=== PATIENT | female | born 1995 | race Caucasian/White ===

== ENCOUNTER 2022-12-30 13:17 | Outpatient (AMB) | payer BC, SELFPAY ==
[2022-12-30 13:23] VITALS: BP 104/64; PULSE 82; O2SAT 98; BMI 32.7
--- NOTE | 2022-12-30 13:23 | MHC.PC.OV ---
Vital Signs 12/30/22 13:23 Height 5 ft 4 in Weight 190 lb 8 oz BMI 32.7 BP 104/64 Blood Pressure Location Rt brachial Position Sitting Pulse 82 Pulse Source Pulse Oximeter Pulse Oximetry (%) 98 Oxygen Delivery Method Room Air Intake Visit Reasons: abd pain Intake Note: pt is here for c/o abd pain for a few months, 2 months , denies constipation, denies frequency with urine or pain Color Checker Required: No Accompanied by: Self / Same As Patient Allergies No Known Allergies Allergy (Verified 12/30/22 13:23) Medication List - Last Reconciled 12/30/22 by Vesta Dacosta MD vit [id number] 27 mg iron- 800 mcg ( Vitamin) 1 tab PO DAILY Tobacco use date assessed: 12/30/22 Dental Screening Dental Screen Date: 12/30/22 Did you have a dental visit in the last 12 months?: Yes Did you have a dental problem in the last 6 months where you did not have access to dental care?: No Was dental information given to patient?: Patient has dentist HPI abd pain HPI Details Pt presents c/o burning epigastric pain, nausea, worse after eating, for a few weeks. Pt had a baby girl on October 11. Patient denies fever chills change in bowel habits hematochezia melena change in urination. Patient has been eating a lot of junk food and drinking a lot of coffee. [facility] Family History Father No problems noted. Mother No problems noted. Social History Housing: House Patient Tobacco Use Status: Never used Tobacco e-Cigarette/Vaping Use: Never Used Current occupational status: employed Cognitive needs: No Hearing needs: No Vision needs: Yes Questionnaire Thrive Questionnaire Date Thrive assessed: 12/30/22 I am a: Patient What is your living situation today?: I have a steady place to live Within the past 12 months, did the food you bought not last and you didn't have the money to get more?: Never true Within the past 12 months, did you worry whether your food would run out before you got money to buy more?: Never true Do you have trouble paying for medicines?: No Do you have trouble getting transportation to medical appointments?: No Do you have trouble paying your heating and electricity bill?: No Do you have trouble taking care of your child, family member or friend?: No Do you have trouble with day-to-day activities such as bathing, preparing meals, shopping, managing finances, etc.?: No Are you currently unemployed and looking for a job?: No Are you interested in more education?: No Please select the resources that you would like help with: None Currently or been in a relationship where the following occur: no concerns reported ROBERT-7 AMB Questionnaire ROBERT-7 Date ROBERT - 7 assessed: 07/09/22 Source: Developed by Drs. Tulio Perez, Ling Adkins, Rosales Cesar and colleagues, with an educational george from [employer]. Review of Systems Const All systems reviewed & are unremarkable except as noted in HPI and below Reports no additional complaints Eyes Reports no additional complaints Physical exam (Primary Care) Vital Signs: Last Vital Signs Pulse 82 12/30/22 13:23 BP 104/64 12/30/22 13:23 Pulse Ox 98 12/30/22 13:23 Oxygen Delivery Method Room Air 12/30/22 13:23 BMI result Body Mass Index 32.7 Tobacco/Smoking Status: Tobacco use Status Tobacco use date assessed 12/30/22 12/30/22 13:24 Patient Tobacco Use Status Never used Tobacco 12/30/22 13:24 e-Cigarette/Vaping Use Never Used 12/30/22 13:24 Thrive Assessment: Date of Thrive Assessment Date Thrive assessed 12/30/22 12/30/22 13:24 Currently or been in a relationship where the following occur: no concerns reported Const General: no acute distress [facility] Mouth: Normal oral and palatal mucosa present Eyes General: appearance normal, both eyes and all related structures Cardio Rhythm: regular rhythm Heart sounds: S1 normal heart sound present and S2 normal heart sound present GI Inspection: Yes normal to inspection Palpation (GI): Soft to palpation and Tenderness to palpation present (GI) in the epigastrum and in the RUQ; Laws's sign negative and with no rebound tenderness Percussion: Yes normal to percussion Auscultation: normal bowel sounds Assessment and Plan Assessment & Plan (1) Abdominal pain: Comment: RUQ pain ,epigastic pain r/o gallstones Code(s): R10.9 - Unspecified abdominal pain Plan: Obtain abdominal ultrasound to rule out gallstones, anti GERD diet discussed with the patient Tagamet 200 mg twice a day will be tried for 1 month Orders: Orders Hemoglobin A1c Today R10.9 - Unspecified abdominal pain US abdomen complete Today R10.9 - Unspecified abdominal pain Comprehensive Met. Panel Today R10.9 - Unspecified abdominal pain Complete Blood Count Auto Diff Today R10.9 - Unspecified abdominal pain TSH reflex Free T4 Today R10.9 - Unspecified abdominal pain Medications: New cimetidine (Tagamet HB) 200 mg PO BID 60 tabs 0RF Coding Level of Care Code Est Pt Level 3 (57970) Diagnoses Abdominal pain R10.9
== END 2022-12-30 14:59 | disposition home or self-care (01) ==
PROVIDERS: PCP Internal Medicine; Visit Provider Internal Medicine
DX: R10.9 Unspecified abdominal pain (principal)
CPT/HCPCS: 99213

== ENCOUNTER 2022-12-30 14:16 | Outpatient (REF) | payer BC, SELFPAY ==
[2022-12-30 16:18] LABS: MANUAL DIFF FLAG NO
[2022-12-30 16:31] LABS: Basophils Absolute Auto 0.1 X10*3/uL (0.0-0.2); Basophils Percent Auto 0.6 % (0-2); Eosinophils Absolute Auto 0.9 X10*3/uL (0.0-0.4); Eosinophils Percent Auto 10.7 % (0-4); Hematocrit 40.4 % (37.0-47.0); Imm Gran Abs Auto 0.02 X10*3/uL (0.00-0.03); Imm Gran Pct Auto 0.2 % (0.0-0.4); Lymphocytes Absolute Auto 1.7 X10*3/uL (1.2-4.9); Lymphocytes Percent Auto 21.7 % (20-40); Mean Corpuscular HGB Conc 34.7 g/dl (31.0-35.0); Mean Corpuscular Hemoglobin 30.4 pg (27.0-33.0); Mean Corpuscular Volume 87.6 fL (80.0-98.0); Mean Platelet Volume 9.4 fL (9.4-12.3); Monocytes Absolute Auto 0.5 X10*3/uL (0.1-1.2); Monocytes Percent Auto 6.5 % (2-11); Neutrophils Absolute Auto 4.8 x10*3/uL (2.0-8.3); Neutrophils Percent Auto 60.3 % (45-73); Platelet Count 279 X10*3/uL (160-400); Red Blood Count 4.61 X10*6/uL (4.20-5.50); Red Cell Distribution Width 12.3 % (11.0-16.0)
[2022-12-30 16:58] LABS: Estimated Average Glucose 100 mg/dL; Hemoglobin A1c % 5.1 % (<6.0)
[2022-12-30 17:00] LABS: Alanine Aminotransferase 19 U/L (0-31); Albumin Level 4.7 g/dL (3.5-5.0); Alkaline Phosphatase 111 U/L (39-117); Anion Gap 12 (12-20); Aspartate Amino Transferase 23 U/L (5-31); Bilirubin Total 0.3 mg/dL (0.0-1.0); Blood Urea Nitrogen 11 mg/dL (9-16); Calcium 9.7 mg/dL (8.4-10.2); Carbon Dioxide 26 mmol/L (22-29); Chloride 106 mmol/L (96-108); Estimated Glomerular Filt Rate > 60; Glucose Random 93 mg/dL (60-115); Potassium 3.8 mmol/L (3.3-5.1); Sodium 140 mmol/L (135-145); Total Protein 7.6 g/dL (6.5-8.0)
[2022-12-30 17:08] LABS: TSH reflex Free T4 0.56 uIU/mL (0.32-4.0)
== END 2022-12-30 14:17 | disposition home or self-care (01) ==
LOC: HO.HMGCLDS 14:16
PROVIDERS: PCP Internal Medicine; Visit Provider Internal Medicine
DX: R10.9 Unspecified abdominal pain (principal)
CPT/HCPCS: 36415; 80053; 83036; 84443; 85025

== ENCOUNTER 2023-01-14 08:56 | Outpatient (REF) | payer BC, SELFPAY ==
--- NOTE | ~2023-01-14 | US_ITS ---
EXAMINATION: US ABDOMEN COMPLETE CLINICAL INFORMATION: Unspecified abdominal pain. COMPARISON: None available. TECHNIQUE: Real-time imaging of the abdominal viscera. FINDINGS: PANCREAS: Normal. ABDOMINAL AORTA: The proximal, mid, and distal segments are normal in caliber. INFERIOR VENA CAVA: Visualized portions are normal. LIVER: The liver is normal in size. The liver contour is normal. There is slightly increased liver parenchymal echogenicity. No focal hepatic lesion. There is no intrahepatic biliary duct dilatation seen. GALLBLADDER: Normal. The gallbladder is physiologically distended without evidence of stones, sludge, polyps, wall thickening or pericholecystic fluid. COMMON BILE DUCT: Normal in caliber measuring 0.3 cm in diameter. RIGHT KIDNEY: Normal. No hydronephrosis. No renal calculi or focal parenchymal lesions. The kidney measures 9.9 cm in maximum dimension. LEFT KIDNEY: Normal. No hydronephrosis. No renal calculi or focal parenchymal lesions. The kidney measures 10.7 cm in maximum dimension. SPLEEN: Normal. The spleen measures 9.9 cm in maximum dimension. FREE FLUID: None. US/US abdomen complete IMPRESSION: 1. There is slight increase in hepatic echotexture, consistent with fatty infiltration or hepatocellular disease. Please correlate clinically. No focal hepatic mass or intrahepatic biliary dilatation is seen. 2. The examination is otherwise unremarkable.
== END 2023-01-14 08:57 | disposition home or self-care (01) ==
LOC: HO.HMGCX 08:56
PROVIDERS: PCP Internal Medicine; Visit Provider Internal Medicine
DX: R10.9 Unspecified abdominal pain (principal)
CPT/HCPCS: 76700

== ENCOUNTER 2023-06-09 14:07 | Outpatient (AMB) | payer OTHER, SELFPAY ==
[2023-06-09 14:11] VITALS: BP 118/74; PULSE 94; O2SAT 98; BMI 33.0
--- NOTE | 2023-06-09 14:11 | A.OFFPC_ITS ---
Vital Signs 06/09/23 14:11 Height 5 ft 4 in Weight 192 lb BMI 33.0 BP 118/74 Blood Pressure Location Lt brachial Position Sitting Pulse 94 Pulse Source Pulse Oximeter Pulse Oximetry (%) 98 Oxygen Delivery Method Room Air Intake Visit Reasons: Abdominal pain nausea Intake Note: Pt is here today for a sick visit. Pt c/o abdominal pain, nausea and night sweats since Tuesday Allergies No Known Allergies Allergy (Verified 06/09/23 14:15) Medication List - Last Reconciled 06/09/23 by Vesta Dacosta MD cimetidine (Tagamet HB) 200 mg PO BID vit [id number] 27 mg iron- 800 mcg ( Vitamin) 1 tab PO DAILY Tobacco use date assessed: 06/09/23 Dental Screening Dental Screen Date: 06/09/23 Did you have a dental visit in the last 12 months?: Yes Did you have a dental problem in the last 6 months where you did not have access to dental care?: No Was dental information given to patient?: Patient has dentist HPI Abdominal pain nausea HPI Details Pt c/o mid abd pain on and off for 4 days, low grade fever, night sweats some nausea, but no vomiting decreased appetite. patient denies dysuria hematuria change in bowel habits back pain. PFSH Family History Father No problems noted. Mother No problems noted. Social History Housing: House Patient Tobacco Use Status: Never used Tobacco e-Cigarette/Vaping Use: Never Used service: No Current occupational status: employed Cognitive needs: No Hearing needs: No Vision needs: Yes Questionnaire Thrive Questionnaire Date Thrive assessed: 12/30/22 AUDIT C Alcohol Use Questionnaire (AUDIT-C) 1. How often do you have a drink containing alcohol?: Never 3. How often do you have six or more drinks on one occasion?: Never Total Score: 0 ROBERT-7 AMB Questionnaire ROBERT-7 Date ROBERT - 7 assessed: 07/09/22 Source: Developed by Drs. Tulio Perez, Ling Adkins, Rosales Cesar and colleagues, with an educational george from [employer]. Review of Systems Const All systems reviewed & are unremarkable except as noted in HPI and below Eyes Reports no additional complaints ENT Reports no additional complaints Card Reports no additional complaints Resp Reports no additional complaints GI Reports no additional complaints Reports no additional complaints Musc Reports no additional complaints Physical exam (Primary Care) Vital Signs: Last Vital Signs Pulse 94 06/09/23 14:11 BP 118/74 06/09/23 14:11 Pulse Ox 98 06/09/23 14:11 Oxygen Delivery Method Room Air 06/09/23 14:11 BMI result Body Mass Index 33.0 Tobacco/Smoking Status: Tobacco use Status Tobacco use date assessed 06/09/23 06/09/23 14:17 Patient Tobacco Use Status Never used Tobacco 06/09/23 14:17 e-Cigarette/Vaping Use Never Used 06/09/23 14:12 Thrive Assessment: Date of Thrive Assessment Date Thrive assessed 12/30/22 06/09/23 14:12 Const General: no acute distress HENMT Head: Yes normal to inspection Eyes General: appearance normal, both eyes and all related structures Neck Neck: Yes supple Resp Effort & Inspection: normal respiratory effort Auscultation: clear to auscultation bilaterally Cardio Rhythm: regular rhythm Heart sounds: S1 normal heart sound present and S2 normal heart sound present GI Inspection: Yes normal to inspection Palpation (GI): Soft to palpation and Rebound tenderness present (LLQ) Auscultation: normal bowel sounds Assessment and Plan Assessment & Plan (1) Appendicitis: Code(s): K37 - Unspecified appendicitis Plan: For acute left lower quadrant abdominal pain basic labs urinalysis will be obtained and CT of the abdomen pelvis to rule out appendicitis or ruptured ovarian cyst Orders: Orders Comprehensive Met. Panel Today K37 - Unspecified appendicitis, R10.9 - Unspecified abdominal pain Ur Preg Test Today K37 - Unspecified appendicitis, R10.9 - Unspecified abdominal pain Complete Blood Count Auto Diff Today K37 - Unspecified appendicitis, R10.9 - Unspecified abdominal pain C Reactive Protein Today K37 - Unspecified appendicitis, R10.9 - Unspecified abdominal pain UA w Microscopic Today K37 - Unspecified appendicitis, R10.9 - Unspecified abdominal pain CT abdomen pelvis wo/w IV con Today K37 - Unspecified appendicitis, R10.9 - Unspecified abdominal pain Coding Level of Care Code Est Pt Level 3 (61937) Diagnoses Appendicitis K37
== END 2023-06-09 14:45 | disposition home or self-care (01) ==
PROVIDERS: PCP Internal Medicine; Visit Provider Internal Medicine
DX: K37 Unspecified appendicitis (principal)
CPT/HCPCS: 99213

== ENCOUNTER 2023-06-09 16:59 | Emergency (ER) | payer OTHER, SELFPAY ==
--- NOTE | ~2023-06-09 | US_ITS ---
STUDY: Abdominal ultrasound, focused. HISTORY: Umbilical/right lower quadrant pain TECHNIQUE: Focused ultrasound of the periumbilical/right lower quadrant was performed to evaluate for appendicitis. US/US appendix FINDINGS/IMPRESSION: The appendix is not visualized. There are a few small lymph nodes identified within the right lower quadrant which appear normal. Peristalsing bowel is identified.
--- NOTE | 2023-06-09 17:27 | ED_ITS ---
HPI - General Adult General Chief complaint: Abdominal Pain Stated complaint: appendicitis per dr Time Seen by Provider: 06/09/23 21:42 History of Present Illness HPI narrative: The patient is a 27-year-old female with no past surgical history and who is an 8-month-old child who has had intermittent episodes of central abdominal pain over the last 5 days. For the most part the symptoms have been worse at night. Last night she had a great deal of pain throughout the night and was apparently almost crying in pain. She went to see her primary care doctor earlier today and was told that there is concern about possible appendicitis. There was discussion about possibly getting a CT scan but ultimately they decided to come to the emergency room for evaluation. After coming to the emergency room the patient had an ultrasound to look for her appendix and she has been waiting to be seen. Her abdominal discomfort has resolved so that by the time I saw her she was having no discomfort whatsoever. The patient has had no vomiting associated with this. No diarrhea. No change in bowel habits. Possibly a mildly decreased appetite but she did eat at 04:30 this afternoon. No fever, sweats, chills. No urinary discomfort. No back pain. She says that when the pain comes she feels it centered around her belly button and it does not lateralize. Eating does not bring on or exacerbate the pain. The patient has had 3 periods since she gave 8 months ago. Her last period was about 2 weeks ago. She does not feel her symptoms feel anything like menstrual symptoms. Related Data Home Medications ?Medication ?Instructions ?Recorded ?Confirmed vits no.[id number] fum 1 tab PO DAILY 07/09/22 06/09/23 27 mg iron-folic acid 800 mcg tablet ( Vitamin) Previous Rx's ?Medication ?Instructions ?Recorded cimetidine 200 mg tablet (Tagamet 200 mg PO BID #180 tabs 02/01/23 HB) sucralfate 1 gram tablet 1 g PO TID PRN abdominal pain #60 06/09/23 tabs Allergies Allergy/AdvReac Type Severity Reaction Status Date / Time No Known Allergies Allergy Verified 06/09/23 17:29 Review of Systems 2 Review of Systems: Yes all other systems are reviewed and are negative [facility] Family History Family History Father No problems noted. Mother No problems noted. Social History Social History Housing: House Patient Tobacco Use Status: Never used Tobacco e-Cigarette/Vaping Use: Never Used Advance Directives: No Advance Directives Information Provided: No Do you have a plan to hurt others: No Plan service: No Current occupational status: employed Cognitive needs: No Hearing needs: No Vision needs: Yes Physical Exam ED Vital Signs: Vital Signs - 24 hr 06/09/23 17:29 06/09/23 21:09 06/09/23 22:29 Temperature 97.3 F 97.2 F 98.4 F Pulse Rate 108 H 91 86 Respiratory Rate 18 18 16 Blood Pressure 110/73 111/65 111/70 Pulse Oximetry 98 99 98 Oxygen Delivery Method Room Air Room Air 06/09/23 22:34 Temperature 98.4 F Pulse Rate 98 Respiratory Rate 20 Blood Pressure 111/70 Pulse Oximetry 98 Oxygen Delivery Method Room Air BMI result Body Mass Index 33.0 Const Other: The patient is awake, alert, pleasant, cooperative. She does not appear in acute distress. HENMT Other: Face is symmetrical, mucous membranes moist, pharynx is unremarkable. Eyes Other: Pupils are round equal, conjunctivae clear Resp Effort & Inspection: normal respiratory effort Auscultation: clear to auscultation bilaterally Cardio Rate: regular rate Rhythm: regular rhythm Heart sounds: S1 normal heart sound present and S2 normal heart sound present GI Other: Abdomen is soft and nontender. No right upper or right lower quadrant tenderness Back/Spine/Pelvis Other: No CVA percussion tenderness Skin Other: Skin is dry and unremarkable. Neuro Other: The patient is awake, alert, appropriate, grossly neurologically intact. Extrem Other: No peripheral edema Course Course Course Narrative: This is a rapid medical exam: Additional HPI, ROS, PE not included below will be deferred to primary provider. Patient is a 27-year-old female presenting to the emergency department with complaint of umbilical pain since Tuesday. Patient saw PCP, Dr. Dacosta, today and was told she had appendicitis. Dr. Dacosta ordered outpatient CT but patient did not want to wait so she came to the ED instead. She is currently , gave 8 months ago. Reports pain is intermittent, 10/10 at worst. Denies vomiting. Changing clothes at night due to sweating. Patient stating she would prefer to start with U/S as she is and concerned about CT contrast. Plan: labs, UA, ultrasound Medical Decision Making Medical Decision Making MDM Narrative: The patient presents with a 5 day abdominal pain syndrome. She describes intermittent episodes of pain that centers around her umbilicus. No lateralizing symptoms or pain. No fevers. The patient's labs show a normal white count of 8000 with 71% neutrophils. LFTs and lipase are normal. Metabolic panel normal. Urinalysis showed trace blood, no ketones. Surprising with the patient's C-reactive protein was 11. At the time that I was evaluating the patient she was not having any ongoing abdominal discomfort and her abdominal exam was nontender. Ultimately my suspicion for appendicitis is extremely low and I do not think she needs imaging to exclude appendicitis. However given her not in significant elevation of her C-reactive protein I feel be reasonable to get ultrasound is of the patient's gallbladder and pelvic organs. She was therefore given requisition for an outpatient abdominal ultrasound and pelvic ultrasound. She was comfortable being discharged with this plan. Lab Data 06/09/23 17:40 06/09/23 17:40 Labs: Lab Results 06/09/23 Range/Units 17:40 WBC 8.0 (4.8-10.8) X10*3/uL RBC 4.43 (4.20-5.50) X10*6/uL Hgb 13.3 (12.0-16.0) g/dl Hct 38.3 (37.0-47.0) % MCV 86.5 (80.0-98.0) fL MCH 30.0 (27.0-33.0) pg MCHC 34.7 (31.0-35.0) g/dl RDW 11.2 (11.0-16.0) % Plt Count 217 (160-400) X10*3/uL MPV 8.8 L (9.4-12.3) fL Immature Gran % (Auto) 0.1 (0.0-0.4) % Neut % (Auto) 71.6 (45-73) % Lymph % (Auto) 17.4 L (20-40) % [place] % (Auto) 9.0 (2-11) % Eos % (Auto) 1.5 (0-4) % Baso % (Auto) 0.4 (0-2) % Lymph # (Auto) 1.4 (1.2-4.9) X10*3/uL [place] # (Auto) 0.7 (0.1-1.2) X10*3/uL Eos # (Auto) 0.1 (0.0-0.4) X10*3/uL Baso # (Auto) 0.0 (0.0-0.2) X10*3/uL Abs Immat Gran (auto) 0.01 (0.00-0.03) X10*3/uL Absolute Neuts (auto) 5.8 (2.0-8.3) x10*3/uL Absolute Nucleated RBC 0.000 (0.0-0.012) X10*3/uL Nucleated RBC % (auto) 0.0 (0.0-0.2) /100WBC Sodium 141 (135-145) mmol/L Potassium 3.6 (3.3-5.1) mmol/L Chloride 107 (96-108) mmol/L Carbon Dioxide 27 (22-29) mmol/L Anion Gap 11 L (12-20) BUN 8 L (9-16) mg/dL Creatinine 0.62 (0.5-1.4) mg/dL Estim Creat Clear Calc 143.1 Estimated GFR > 60 Random Glucose 113 (60-115) mg/dL Calcium 9.5 (8.4-10.2) mg/dL Total Bilirubin 0.3 (0.0-1.0) mg/dL AST 21 (5-31) U/L ALT 21 (0-31) U/L Alkaline Phosphatase 107 (39-117) U/L C-Reactive Protein 11.04 H (< or = 0.50) mg/dL Total Protein 7.4 (6.5-8.0) g/dL Albumin 4.2 (3.5-5.0) g/dL Lipase 46 (8-78) U/L Beta HCG, Quant < 2 mIU/mL Urine Color Yellow Urine Appearance Clear Urine pH 6.5 (5.0-9.0) Ur Specific [place] <= 1.005 (1.005-1.025) Urine Protein Negative (Neg-Trace) mg/dL Urine Glucose (UA) Negative (Negative) mg/dL Urine Ketones Negative (Negative) mg/dL Urine Blood Trace H (Negative) Urine Nitrite Negative (Negative) Ur Leukocyte Esterase Negative (Negative) Urine RBC 0-2 (0-2) /HPF Urine WBC 0-5 (0-5) /HPF Ur Squamous Epith Cells 3-5 (0-2) /HPF Urine Bacteria None Seen (None Seen) Hyaline Casts 0-2 (0-2) /LPF Discharge Plan Discharge Clinical Impression: Abdominal pain Patient Disposition: Home, Self-Care Additional Instructions: I think it is unlikely that the symptoms you have been having represent appendicitis. However for further evaluation of your abdomen you have been given an order form for an ultrasound of your abdomen and pelvis to be done tomorrow as an outpatient. Please call [phone] tomorrow morning to find out when this test can happen. For evaluation of your gallbladder by ultrasound you need to have an empty stomach for about 6 hours so I would recommend not eating any breakfast until you call the number to see when they can get you in. It is possible your episodes of abdominal pain may be caused by something to do with stomach acid. A medication called sucralfate may be helpful. I have sent a prescription for this medication to the 24 hour pharmacy at [facility] on [address] [facility] in [place]. You may use this medication on an as-needed basis for additional episodes of discomfort if you have any. Otherwise I would plan on following up again with your regular doctor if you continued to have episodes of discomfort. If at any point you have persistently worsening symptoms please return to the emergency room for further evaluation. Prescriptions: New sucralfate 1 gram tablet 1 g PO TID PRN (Reason: abdominal pain) Qty: 60 0RF No Action cimetidine [Tagamet HB] 200 mg tablet 200 mg PO BID Qty: 180 0RF Vitamin 27 mg iron- 800 mcg tablet 1 tab PO DAILY Referrals: Vesta Dacosta MD [Primary Care Provider] - (abdominal pain) Interventions: ED Discharge Assessment Last Done: 06/09/23 22:34 Discharge Date/Time: 06/09/23 22:35 Print Language: Spanish
[2023-06-09 17:29] VITALS: BP 110/73; PULSE 108; RESP 18; TEMP 36.3; O2SAT 98; BMI 33.0
[2023-06-09 17:47] LABS: MANUAL DIFF FLAG NO
[2023-06-09 17:49] LABS: Basophils Percent Auto 0.4 % (0-2); Eosinophils Absolute Auto 0.1 X10*3/uL (0.0-0.4); Eosinophils Percent Auto 1.5 % (0-4); Hematocrit 38.3 % (37.0-47.0); Hemoglobin 13.3 g/dl (12.0-16.0); Imm Gran Abs Auto 0.01 X10*3/uL (0.00-0.03); Imm Gran Pct Auto 0.1 % (0.0-0.4); Lymphocytes Absolute Auto 1.4 X10*3/uL (1.2-4.9); Lymphocytes Percent Auto 17.4 % (20-40); Mean Corpuscular HGB Conc 34.7 g/dl (31.0-35.0); Mean Corpuscular Volume 86.5 fL (80.0-98.0); Mean Platelet Volume 8.8 fL (9.4-12.3); Monocytes Absolute Auto 0.7 X10*3/uL (0.1-1.2); Neutrophils Absolute Auto 5.8 x10*3/uL (2.0-8.3); Neutrophils Percent Auto 71.6 % (45-73); Platelet Count 217 X10*3/uL (160-400); Red Blood Count 4.43 X10*6/uL (4.20-5.50); Red Cell Distribution Width 11.2 % (11.0-16.0)
[2023-06-09 17:55] LABS: Appearance Urine Clear; Color Urine Yellow; Glucose Urine UA Negative (Negative); Leukocyte Esterase Urine Negative (Negative); Nitrite Urine Negative (Negative); PH 6.5 (5.0-9.0); Specific Gravity - Urine <= 1.005 (1.005-1.025); UMIC TRIGGER UACC YES; Urine Blood Trace (Negative); Urine Ketones Negative (Negative); Urine Protein Negative (Neg-Trace)
[2023-06-09 18:00] LABS: Bacteria Urine None Seen (None Seen); Hyaline Casts Urine 0-2 /LPF (0-2); RBC Urine 0-2 /HPF (0-2); WBC Urine 0-5 /HPF (0-5)
[2023-06-09 18:08] LABS: Alanine Aminotransferase 21 U/L (0-31); Albumin Level 4.2 g/dL (3.5-5.0); Alkaline Phosphatase 107 U/L (39-117); Anion Gap 11 (12-20); Aspartate Amino Transferase 21 U/L (5-31); Bilirubin Total 0.3 mg/dL (0.0-1.0); Blood Urea Nitrogen 8 mg/dL (9-16); Calcium 9.5 mg/dL (8.4-10.2); Carbon Dioxide 27 mmol/L (22-29); Chloride 107 mmol/L (96-108); Creatinine Clr Calc Pharmacy 143.1; Estimated Glomerular Filt Rate > 60; Glucose Random 113 mg/dL (60-115); Potassium 3.6 mmol/L (3.3-5.1); Sodium 141 mmol/L (135-145); Total Protein 7.4 g/dL (6.5-8.0)
[2023-06-09 18:09] LABS: HCG Quantitative < 2 mIU/mL
[2023-06-09 21:09] VITALS: BP 111/65; PULSE 91; RESP 18; TEMP 36.2; O2SAT 99
[2023-06-09 22:04] LABS: C Reactive Protein 11.04 mg/dL (< or = 0.50)
[2023-06-09 22:29] VITALS: BP 111/70; PULSE 86; RESP 16; TEMP 36.9; O2SAT 98
--- NOTE | 2023-06-09 22:32 | PC.NURSE ---
Reviewed discharge instruction with pt, pt verbalized understanding, no sign of distress, notified RN Berta.
[2023-06-09 22:34] VITALS: BP 111/70; PULSE 98; RESP 20; TEMP 36.9; O2SAT 98
[2023-06-10 08:10] LABS: Lipase 46 U/L (8-78)
== END 2023-06-09 22:35 | disposition home or self-care (01) ==
PROVIDERS: Registered Nurse Emergency; Emergency Provider Emergency Medicine; PCP Internal Medicine
DX: R10.33 Periumbilical pain (principal); R10.2 Pelvic and perineal pain; Z79.899 Other long term (current) drug therapy
CPT/HCPCS: 36415; 76705; 80053; 81001; 83690; 84702; 85025; 86140; 99283; 99284

== ENCOUNTER 2023-06-10 14:34 | Outpatient (REF) | payer OTHER, SELFPAY ==
--- NOTE | ~2023-06-10 | US_ITS ---
EXAMINATION: US PELVIS CLINICAL INFORMATION: Right lower quadrant pain. LMP about 2 weeks ago. COMPARISON: None available. TECHNIQUE: Ultrasound of the pelvis is performed using both transabdominal and transvaginal transducers along with Doppler. Transvaginal imaging is performed due to inadequate visualization transabdominally. FINDINGS: The uterus is retroverted and retroflexed measuring 7.9 x 4.5 x 6.5 cm. No uterine lesion. The endometrial canal measures 1.1 cm in thickness without discrete focal abnormality. Small amount of fluid in the endocervical canal, most likely physiologic. Few simple appearing Nabothian cysts are noted overlying the cervix. Ovaries are normal in morphology with preserved flow on color Doppler at the moment of this examination. The right ovary measures 3.6 x 1.7 x 1.9 cm, 6 mL and the left ovary measures 4.6 x 2.5 x 2.6 cm, 15.5 mL. There is a 2.6 x 1.9 x 1.9 cm simple appearing cyst in the left ovary, for which no imaging follow-up is recommended. There is a 3.4 x 2.3 x 2.6 cm simple appearing right adnexal/paraovarian cyst, for which no imaging follow-up is recommended. Small amount of free fluid, most likely physiologic. US/US pelvic and transvaginal IMPRESSION: No acute sonographic abnormalities to explain the patient's symptoms.
--- NOTE | ~2023-06-10 | US_ITS ---
EXAMINATION: US ABDOMEN LIMITED CLINICAL INFORMATION: Abdominal pain. COMPARISON: 01/14/2023 TECHNIQUE: Real-time imaging of the right upper quadrant abdominal viscera. FINDINGS: PANCREAS: Tail obscured. LIVER: The liver is normal in size. The liver contour is normal. Parenchymal echogenicity is normal. No focal hepatic lesion. There is no intrahepatic biliary duct dilatation seen. GALLBLADDER: The gallbladder is physiologically distended without evidence of stones, sludge, polyps, wall thickening or pericholecystic fluid. COMMON BILE DUCT: Normal in caliber measuring 0.4 cm in diameter. RIGHT KIDNEY: No hydronephrosis. No renal calculi or focal parenchymal lesions. The kidney measures 11.0 cm in maximum dimension. FREE FLUID: None. Targeted sonography was performed of the right periumbilical region. There is a nondilated tubular structure in the right lower quadrant measuring 3 mm that is compressible. There is no free fluid or fluid collection. Peristalsing bowel is identified. US/US abdomen limited IMPRESSION: No sonographic evidence of acute appendicitis.
== END 2023-06-10 14:35 | disposition home or self-care (01) ==
LOC: HO.HMGCX 14:34
PROVIDERS: PCP Internal Medicine; Visit Provider Internal Medicine
DX: N83.209 Unspecified ovarian cyst, unspecified side (principal); R10.31 Right lower quadrant pain
CPT/HCPCS: 76705; 76830; 76856

== ENCOUNTER 2023-06-16 08:25 | Outpatient (REF) | payer OTHER, SELFPAY ==
[2023-06-16 10:17] LABS: MANUAL DIFF FLAG NO
[2023-06-16 10:32] LABS: Basophils Percent Auto 0.5 % (0-2); Eosinophils Absolute Auto 0.3 X10*3/uL (0.0-0.4); Eosinophils Percent Auto 3.8 % (0-4); Hematocrit 40.7 % (37.0-47.0); Hemoglobin 13.8 g/dl (12.0-16.0); Imm Gran Abs Auto 0.03 X10*3/uL (0.00-0.03); Imm Gran Pct Auto 0.4 % (0.0-0.4); Lymphocytes Absolute Auto 1.9 X10*3/uL (1.2-4.9); Lymphocytes Percent Auto 24.5 % (20-40); Mean Corpuscular HGB Conc 33.9 g/dl (31.0-35.0); Mean Corpuscular Volume 88.5 fL (80.0-98.0); Mean Platelet Volume 9.2 fL (9.4-12.3); Monocytes Absolute Auto 0.6 X10*3/uL (0.1-1.2); Monocytes Percent Auto 6.9 % (2-11); Neutrophils Absolute Auto 5.1 x10*3/uL (2.0-8.3); Neutrophils Percent Auto 63.9 % (45-73); Platelet Count 327 X10*3/uL (160-400); Red Cell Distribution Width 11.6 % (11.0-16.0); White Blood Count 7.9 X10*3/uL (4.8-10.8)
[2023-06-16 11:09] LABS: Estimated Average Glucose 105 mg/dL; Hemoglobin A1c % 5.3 % (<6.0)
[2023-06-16 11:21] LABS: Appearance Urine Cloudy; Color Urine Yellow; Glucose Urine UA Negative (Negative); Leukocyte Esterase Urine Small (1+) (Negative); Nitrite Urine Negative (Negative); PH 6.5 (5.0-9.0); Specific Gravity - Urine 1.015 (1.005-1.025); UMIC TRIGGER UA YES; Urine Blood Negative (Negative); Urine Ketones Negative (Negative); Urine Protein Negative (Neg-Trace)
[2023-06-16 11:27] LABS: Bacteria Urine 1+ (None Seen); Hyaline Casts Urine 0-2 /LPF (0-2); RBC Urine 0-2 /HPF (0-2); Squamous Epithelial Cell Urine >20 /HPF (0-2)
[2023-06-16 11:36] LABS: UPreg QC Valid YES; Urine Pregnancy NEGATIVE (NEGATIVE)
[2023-06-16 12:04] LABS: Alanine Aminotransferase 21 U/L (0-31); Albumin Level 4.2 g/dL (3.5-5.0); Alkaline Phosphatase 80 U/L (39-117); Anion Gap 13 (12-20); Aspartate Amino Transferase 18 U/L (5-31); Bilirubin Total 0.3 mg/dL (0.0-1.0); Blood Urea Nitrogen 15 mg/dL (9-16); Calcium 10.1 mg/dL (8.4-10.2); Carbon Dioxide 24 mmol/L (22-29); Chloride 103 mmol/L (96-108); Cholesterol 176 mg/dL (<200); Estimated Glomerular Filt Rate > 60; Glucose Random 91 mg/dL (60-115); HDL Cholesterol 49 mg/dL (>40); LDL Cholesterol Calculated 111 mg/dL (<100); Potassium 4.1 mmol/L (3.3-5.1); Sodium 136 mmol/L (135-145); Total Protein 7.2 g/dL (6.5-8.0); Triglycerides 80 mg/dL (<150)
== END 2023-06-16 08:26 | disposition home or self-care (01) ==
LOC: HO.HMGCLDS 08:25
PROVIDERS: PCP Internal Medicine; Visit Provider Internal Medicine
DX: Z13.6 Encounter for screening for cardiovascular disorders (principal); K37 Unspecified appendicitis; R10.9 Unspecified abdominal pain; Z86.32 Personal history of gestational diabetes
CPT/HCPCS: 36415; 80053; 80061; 81001; 81025; 83036; 85025; 86140

== ENCOUNTER 2023-06-17 09:53 | Outpatient (REF) | payer OTHER, SELFPAY ==
[2023-06-17 14:11] LABS: Appearance Urine Clear; Color Urine Yellow; Glucose Urine UA Negative (Negative); Leukocyte Esterase Urine Trace (Negative); Nitrite Urine Negative (Negative); UMIC TRIGGER UA YES; Urine Blood Negative (Negative); Urine Ketones Negative (Negative); Urine Protein Negative (Neg-Trace)
[2023-06-17 14:14] LABS: Bacteria Urine None Seen (None Seen); Hyaline Casts Urine 0-2 /LPF (0-2); RBC Urine 0-2 /HPF (0-2); WBC Urine 0-5 /HPF (0-5)
== END 2023-06-17 09:54 | disposition home or self-care (01) ==
LOC: HO.HMGCLDS 09:53
PROVIDERS: PCP Internal Medicine; Visit Provider Internal Medicine
DX: R10.31 Right lower quadrant pain (principal)
CPT/HCPCS: 81001; 87086

== ENCOUNTER 2024-04-05 10:15 | Outpatient (REF) | payer BC, SELFPAY ==
--- OUTSIDE RECORDS SUMMARY | 2024-04-05 11:22 | XMS_ITS | Clinical Summary ---
Author Organization [facility] Address [address] [place] [address] Phone Care Team Providers Care Checker And Packer Name Role Phone Connie Zamorano MD Primary Care Provider [phone] Allergies No known active allergies Encounters Date Type Department Care Team Description 03/13/2024 1:31 PM EST - 03/13/2024 4:47 PM EST Emergency [facility] Emergency [address] [place] [address] Wilbert Garcia MD Influenza A (Primary Dx); Tachycardia Discharge Disposition: Home or Self Care from Last 3 Months Surgical History Surgery Date Site/Laterality Comments OTHER SURGICAL HISTORY PROCEDURE: DENIES PREVIOUS SURGERY Medical History Medical History Date Comments Patient denies medical problems DX:Patient denies medical problems Family History Medical History Relation Name Comments Breast cancer Aunt father's side Lung cancer Maternal Grandfather Cervical cancer Neg Hx Colon cancer Neg Hx Ovarian cancer Neg Hx Pancreatic cancer Neg Hx Prostate cancer Neg Hx Uterine cancer Neg Hx Relation Name Status Comments Aunt father's side Alive Maternal Grandfather Social History Tobacco Use Types Packs/Day Years Used Date Smoking Tobacco: Never Smokeless Tobacco: Never Alcohol Use Standard Drinks/Week Comments No 0 (1 standard drink = 0.6 oz pur e alcohol) Comments Unknown Sex and Gender Information Value Date Recorded Sex Assigned at Not on file Legal Sex Female 5:29 AM EST Gender Identity Not on file Sexual Orientation Not on file Obstetrics History Last Filed Vital Signs Vital Sign Reading Time Taken Comments Blood Pressure 118/85 03/13/2024 2:04 PM EST Pulse 130 03/13/2024 2:04 PM EST Temperature 37.2 ??C (99 ??F) 03/13/2024 2:04 PM EST Respiratory Rate 16 03/13/2024 2:04 PM EST Oxygen Saturation 99% 03/13/2024 2:04 PM EST Inhaled Oxygen Concentration - - Weight 88.5 kg (195 lb) 03/13/2024 1:48 PM EST Height 164.6 cm (5' 4.8 ) 03/13/2024 1:48 PM EST Body Mass Index 32.65 03/13/2024 1:48 PM EST Plan of Treatment Health Maintenance Due Date Last Done Comments Hepatitis B Vaccines (1 of 3 - 19+ 3-dose series) 2012 Cervical Cancer Screening: P ap Smear 03/28/2021 03/28/2018 COVID-19 Vaccine (1 - 2023-2 5 season) 2023 Influenza Vaccine (#1) 2023 Depression Screening 03/13/2024 HIV Screening 03/13/2024 Hepatitis C Screening 03/13/2024 Social Influencers of Health Screening 03/13/2024 DTaP,Tdap,and Td Vaccines (2 - Td or Tdap) 05/20/2029 05/21/2019 HIB Vaccines Aged Out No longer eligi ble based on patient's age to complete this topic HPV Vaccines Aged Out No longer eligi ble based on patient's age to complete this topic Hepatitis A Vaccines Aged Out No long er eligible based on patient's age to complete this topic IPV Vaccines Aged Out No longer eligi ble based on patient's age to complete this topic MMR Vaccines Aged Out No longer eligi ble based on patient's age to complete this topic Meningococcal ACWY Vaccine Aged Out N o longer eligible based on patient's age to complete this topic Meningococcal B Vacine Aged Out No lo nger eligible based on patient's age to complete this topic Pneumococcal Vaccine: Pediat rics (0 to 5 Years) and At-Risk Patients (6 to 64 Years) Aged Out No longer eligi ble based on patient's age to complete this topic RSV Immunization Patients Un bernardo 20 months Aged Out No longer eligible b ased on patient's age to complete this topic Varicella Vaccines Aged Out No longer eligible based on patient's age to complete this topic Procedures Procedure Name Priority Date/Time Associated Diagnosis Comments ECG 12-LEAD STAT 03/13/2024 2:15 PM EST THYROID STIMULATING HORMONE STAT Add-on 03/13/2024 2:02 PM EST CBC WITH AUTO DIFFERENTIAL STAT 03/13/2024 2:02 PM EST MAGNESIUM STAT 03/13/2024 2:02 PM EST BASIC METABOLIC PANEL STAT 03/13/2024 2:02 PM EST CBC AND DIFFERENTIAL STAT 03/13/2024 2:02 PM EST ECG ANNOTATED 03/13/2024 PAP SMEAR Routine 03/28/2018 from Last 3 Months or Most Recently Relevant to Health Maintenance Results * ECG 12 lead (03/13/2024 2:15 PM EST) Ventricular Rate ECG 121 BPM GEMUSE Atrial Rate 121 BPM GEMUSE P-R Interval 142 ms GEMUSE QRS Duration 80 ms GEMUSE Q-T Interval 320 ms GEMUSE QTc 454 ms GEMUSE P Wave [place] 47 degrees GEMUSE R [place] 28 degrees GEMUSE T [place] 13 degrees GEMUSE ECG Interpretation Sinus tachycardia Otherwise normal ECG No previous ECGs available Confirmed by MD Eli Christopher ([id number]) on 03/14/2024 9:26:55 AM GEMUSE 03/13/2024 2:15 PM EST 03/14/2024 9:26 AM EST us Wilbert Garcia MD ECG ORDERABLES Final Resul t GEMUSE * (ABNORMAL) CBC auto differential (03/13/2024 2:02 PM EST) WBC 8.7 4.8 - 10.8 [facility] LAB HEMETOLOGY METHOD 03/13/2024 3:08 PM EST [facility] RBC 4.50 3.80 - 4.80 M/mcL LAB HEMETOLOGY METHOD 03/13/2024 3:08 PM [facility] Hemoglobin 13.3 11.5 - 16.0 g/dL LAB HEMETOLOGY METHOD 03/13/2024 3:08 PM [facility] Hematocrit 39.0 35.0 - 47.0 % LAB HEMETOLOGY METHOD 03/13/2024 3:08 PM [facility] MCV 87.4 79.0 - 98.0 FL LAB HEMETOLOGY METHOD 03/13/2024 3:08 PM [facility] MCH 29.8 27.0 - 32.0 pcg LAB HEMETOLOGY METHOD 03/13/2024 3:08 PM [facility] MCHC 34.1 32.0 - 37.0 g/dL LAB HEMETOLOGY METHOD 03/13/2024 3:08 PM [facility] RDW 11.5 11.0 - 15.0 % LAB HEMETOLOGY METHOD 03/13/2024 3:08 PM [facility] Platelets 225 130 - 400 K/mcL LAB HEMETOLOGY METHOD 03/13/2024 3:08 PM [facility] MPV 9.7 7.0 - 11.0 FL LAB HEMETOLOGY METHOD 03/13/2024 3:08 PM [facility] NRBC 0.0 <1.0 % LAB HEMETOLOGY METHOD 03/13/2024 3:08 PM [facility] NRBC Absolute 0.00 <0.10 K/mcL LAB HEMETOLOGY METHOD 03/13/2024 3:08 PM [facility] Neutrophils Relative 89.7 % LAB HEMETOLOGY METHOD 03/13/2024 3:08 PM [facility] Lymphocytes Relative 3.0 % LAB HEMETOLOGY METHOD 03/13/2024 3:08 PM [facility] Monocytes Relative 6.1 % LAB HEMETOLOGY METHOD 03/13/2024 3:08 PM [facility] Eosinophils Relative 0.7 % LAB HEMETOLOGY METHOD 03/13/2024 3:08 PM [facility] Basophils Relative 0.3 % LAB HEMETOLOGY METHOD 03/13/2024 3:08 PM [facility] Immature Granulocytes Relative 0.2 % LAB HEMETOLOGY METHOD 03/13/2024 3:08 PM [facility] Neutrophils Absolute 7.75(H) 1.50 - 7.00 K/mcL LAB HEMETOLOGY METHOD 03/13/2024 3:08 PM [facility] Lymphocytes Absolute 0.26(L) 1.00 - 5.00 K/mcL LAB HEMETOLOGY METHOD 03/13/2024 3:08 PM [facility] Monocytes Absolute 0.53 0.20 - 1.00 K/mcL LAB HEMETOLOGY METHOD 03/13/2024 3:08 PM [facility] Eosinophils Absolute 0.06 0.00 - 0.50 K/mcL LAB HEMETOLOGY METHOD 03/13/2024 3:08 PM [facility] Basophils Absolute 0.03 0.00 - 0.20 K/mcL LAB HEMETOLOGY METHOD 03/13/2024 3:08 PM [facility] Immature Granulocytes Absolute 0.02 0.00 - 0.03 K/mcL LAB HEMETOLOGY METHOD 03/13/2024 3:08 PM [facility] Blood Venous blood specimen / Unknown Venipuncture / Unknown 03/13/2024 2:02 PM EST 03/13/2024 2:54 PM EST us Wilbert Garcia MD LAB BLOOD ORDERABLES Final Result [facility] [address] [place] [address], [place] [phone] * (ABNORMAL) Thyroid stimulating hormone (TSH) (03/13/2024 2:02 PM EST) [facility] TSH 0.33(L) 0.40 - 4.00 mcIU/mL LAB CHEMISTRY METHOD 03/13/2024 3:35 PM EST [facility] Blood Venous blood specimen / Unknown Venipuncture / Unknown 03/13/2024 2:02 PM EST 03/13/2024 2:54 PM EST Wilbert Garcia MD LAB BLOOD ORDERABLES Final Result Performing Organization Address [facility]/ZIP Co de Phone Number [facility] [address] [place] [address], [place] [phone] * Magnesium (03/13/2024 2:02 PM EST) [facility] Magnesium 1.9 1.9 - 2.6 mg/dL LAB CHEMISTRY METHOD 03/13/2024 3:24 PM EST [facility] Blood Venous blood specimen / Unknown Venipuncture / Unknown 03/13/2024 2:02 PM EST 03/13/2024 2:54 PM EST Wilbert Garcia MD LAB BLOOD ORDERABLES Final Result [facility] [address] [place] [address], [place] [phone] * (ABNORMAL) Basic metabolic panel (03/13/2024 2:02 PM EST) [facility] Sodium 137 133 - 145 mmol/L LAB CHEMISTRY METHOD 03/13/2024 3:24 PM EST [facility] Potassium 3.4(L) 3.5 - 5.5 mmol/L LAB CHEMISTRY METHOD 03/13/2024 3:24 PM EST [facility] Chloride 106 96 - 110 mmol/L LAB CHEMISTRY METHOD 03/13/2024 3:24 PM [facility] CO2 23 21 - 32 mmol/L LAB CHEMISTRY METHOD 03/13/2024 3:24 PM [facility] Anion Gap 8 3 - 11 LAB CHEMISTRY METHOD 03/13/2024 3:24 PM [facility] Glucose 91 70 - 100 mg/dL LAB CHEMISTRY METHOD 03/13/2024 3:24 PM [facility] BUN 11 5 - 25 mg/dL LAB CHEMISTRY METHOD 03/13/2024 3:24 PM [facility] Creatinine 0.58 0.50 - 1.10 mg/dL LAB CHEMISTRY METHOD 03/13/2024 3:24 PM [facility] eGFR 125 >=60 mL/min/1. 73m2 LAB CHEMISTRY METHOD 03/13/2024 3:24 PM [facility] Comment:Calculation based on the??Chronic Kidney Disease Epidemiology Collaboration (CKD-EPI) equation refit??without adjustment for race. BUN/Creatinine Ratio 19.0 LAB CHEMISTRY METHOD 03/13/2024 3:24 PM [facility] Calcium 8.8 8.5 - 10.5 mg/dL LAB CHEMISTRY METHOD 03/13/2024 3:24 PM [facility] Blood Venous blood specimen / Unknown Venipuncture / Unknown 03/13/2024 2:02 PM EST 03/13/2024 2:54 PM EST us Wilbert Garcia MD LAB BLOOD ORDERABLES Final Result [facility] [address] [place] [address], * ECG-Annotated (03/13/2024) us Provider Onbase ECG ORDERABLES Final Result * Pap smear (03/28/2018) 03/28/2018 Narrative HISTORICAL TESTING LAB RESULTING AGENCY - 04/04/2018 3:53 PM EST [id number] THINPREP PAP, IMAGED: ATYPICAL SQUAMOUS CELLS OF UNDETERMINED SIGNIFICANCE (ASCUS) . LELAND IS PRESENT. KENYA SMITH , CT(ASCP) (CASE SCREENED 03 30 2018) JOVANY PINTO M.D. , PATHOLOGIST (CASE ELECTRONICALLY SIGNED 03 31 2018) RESULT OF APTIMA HIGH RISK HPV ASSAY: HIGH RISK HPV: ??NEGATIVE (SEROTYPES 16,18,31,33,35,39,45,51,52,56,58,59,66,68) COMPLETED ON 2018-04-04 ADEQUACY: SATISFACTORY ENDOCERVICAL/TRANSFORMATION ZONE COMPONENT PRESENT. SOURCE: THINPREP PAP HPV IF ASCUS, CERVICAL, IMAGED CLINICAL INFORMATION: HPV IF DIAGNOSIS OF ASCUS. Z12.4, Z01.419,, LMP 03/08/18, HORMONES Pdady Hernandez [facility] LAB CYTOLOGY ORDERABLES Final Result HISTORICAL TESTING LAB RESULTING AGENCY from Last 3 Months or Most Recently Relevant to Health Maintenance Insurance [facility] Care Teams Checker And Packer Relationship Specialty Start Date End Date Connie Zamorano MD [address] [place] [id number] PCP - General Internal Medicine 03/17/17
--- OUTSIDE RECORDS SUMMARY | 2024-04-05 11:23 | XMS_ITS | Encounter Summary ---
Author Organization [facility] Address [address] [place] [address] Care Team Providers Care Fleet Service Manager Name Role Phone Connie Zamorano MD Primary Care Provider [phone] Reason for Visit * Reason Comments Flu Symptoms h Rapid Heart Rate Encounter Details Date Type Department Care Team (Late st Contact Info) Description 03/13/2024 1:31 PM EST - 03/13/2024 4:[address] [facility] Emergency [address] [place] [id number] Wilbert Garcia MD [address] [address] Influenza A (Primary Dx); Tachycardia Discharge Disposition: Home or Self Care Social History Tobacco Use Types Packs/Day Years Used Date Smoking Tobacco: Never Smokeless Tobacco: Never Alcohol Use Standard Drinks/Week Comments No 0 (1 standard drink = 0.6 oz pur e alcohol) Comments Unknown Sex and Gender Information Value Date Recorded Sex Assigned at Not on file Legal Sex Female 5:29 AM EST Gender Identity Not on file Sexual Orientation Not on file documented as of this encounter Last Filed Vital Signs Vital Sign Reading [...] Mass Index 32.65 03/13/2024 1:48 PM EST documented in this encounter Functional Status * Are you deaf or do you have serious difficulty hearing? Answer Date of Assessment Author No 03/13/2024 2:27 PM EST Gwendolyn Boothe ma, RN * Are you blind or do you have serious difficulty seeing, even when wearing glasses? Answer Date of Assessment Author No 03/13/2024 2:27 PM EST Gwendolyn Boothe ma, RN * Do you have serious difficulty walking or climbing stairs? Answer Date of Assessment Author No 03/13/2024 2:27 PM EST Gwendolyn Boothe ma, RN * Do you have serious difficulty dressing or bathing? Answer Date of Assessment Author No 03/13/2024 2:27 PM EST Gwendolyn Boothe ma, RN * Because of a physical, mental, or emotional condition, do you have serious difficulty doing errandsalone such as visiting the doctor? Answer Date of Assessment Author No 03/13/2024 2:27 PM EST Gwendolyn Boothe ma, RN documented as of this encounter Mental Status * Because of a physical, mental, or emotional condition, do you have serious difficulty concentrating, remembering, or making decisions? (5 years old or older) Answer Entry Date Author No 03/13/2024 2:27 PM EST Gwendolyn Boothe ma, RN documented in this encounter Discharge Instructions * Discharge Instructions* Wilbert Garcia MD - 03/13/2024 3:41 PM EST Likely have accelerated heart rate due to your influenza. Please take Tamiflu to try to keep your fever down. If you are have difficulty breathing or shortness of breath or chest pain please return to the emergency department * Attachments The following attachments cannot be sent through Care Everywhere. * Influenza ([place]) documented in this encounter Discharge Disposition Disposition Code Departure Means Destination Comment s Home or Self Care documented in this encounter Progress Notes * Karolyn Eaton RN - 03/13/2024 1:34 PM EST Coming from Urgent care, c/o flu like sx. Found to have HR in the 180's at clinic, given APAP and water without any change. Advised to come to ED * Wilbert Garcia MD - 03/13/2024 1:17 PM EST Emergency Medicine Note Patient Name: Gabi Delgado Initial Evaluation: 03/13/2024 : 1995 Patient's PCP: Connie Zamorano MD Emergency Physician: Wilbert Garcia MD History of Present Illness Chief Complaint: Chief Complaint Patient presents with Flu Symptoms h Rapid Heart Rate HPI: This is a healthy 28-year-old female who presents from urgent care with positive flu A with tachycardia up to the 180s. She denies any chest pain or shortness of breath. She states she has a distant history of arrhythmias when she was and after she had COVID but does not take any medicines for this. No nausea vomit she is tolerating p.o. She was given 600 mg of ibuprofen and 975 of Tylenol prior to leaving. ROS: I have performed a ROS with the pertinent positives and negatives documented in the history ofpresent illness. Previous History Past Medical History: Diagnosis Date Patient denies medical problems DX:Patient denies medical problems Past Surgical History: Procedure Laterality Date OTHER SURGICAL HISTORY PROCEDURE: DENIES PREVIOUS SURGERY Social History Tobacco Use Smoking status: Never Smokeless tobacco: Never Substance Use Topics Alcohol use: No Drug use: No Family History Problem Relation Name Age of Onset Lung cancer Maternal Grandfather Breast cancer Aunt father's side 45.00 Uterine cancer Neg Hx Ovarian cancer Neg Hx Cervical cancer Neg Hx Pancreatic cancer Neg Hx Prostate cancer Neg Hx Colon cancer Neg Hx has No Known Allergies. No current facility-administered medications on file prior to encounter. No current outpatient medications on file prior to encounter. Physical Exam ED Triage Vitals Temp Pulse Resp BP -- -- -- -- SpO2 Temp src Heart Rate Source Patient Position -- -- -- -- BP Location FiO2 (%) -- -- General: Well-appearing, well nourished, in no acute distress HEENT: PERRL, EOMI, external ears and nose appear unremarkable, airway is patent Neck: Supple, full range of motion, no meningismus, no JVD Chest: Clear to auscultation; no evidence of respiratory distress Circulatory tachycardic reg rhythym, no murmurs rubs or gallops Abdomen: Non-distended, Non-Tender Extremities: Normal ROM, No edema, ranging all extremities without difficulty Skin: Warm and dry, well-perfused , no rashes Neuro: Alert and oriented x 3. no motor or sensory deficits Psyche: Normal affect Results Labs Reviewed CBC AND DIFFERENTIAL Narrative: The following orders were created for panel order CBC and differential. Procedure Abnormality Status --------- ------ CBC auto differential[[id number]] Please view results for these tests on the individual orders. BASIC METABOLIC PANEL MAGNESIUM CBC WITH AUTO DIFFERENTIAL Abnormal Labs Reviewed - No abnormal labs to display No orders to display I have discussed the incidental/abnormal imaging and/or lab abnormalities with the patient and haveinstructed them the need for further evaluation and workup with their primary care doctor. I have provided the patient with a paper copy of the abnormality. The laboratory results, imaging results and other diagnostic exam results were reviewed in the EMR. EKG Interpretation Critical Care Time None ? Medical Decision Making Medications sodium chloride 0.9 % bolus 1,000 mL (has no administration in time range) ED Course as of 03/13/242232Mar 13, 2024 1535 Appears improved after fluids she would like to leave. Tentative plan she does not have any shortness of breath or dyspnea. Related to her viral syndrome. [JL] ED Course User Index [JL] Wilbert Garcia MD Clinical Impressions as of 03/13/242232 Influenza A Tachycardia I discussed the patient with the patient this and benefits of leaving. She is nontoxic-appearing mildly tachycardic likely secondary to viral syndrome. Instructed return if she has any worsening shortness of breath. She understands risks of leaving and accepts these Procedures Diagnosis No diagnosis found. Disposition Data Unavailable ED Prescriptions None Physician Attestation Wilbret Garcia MD 03/13/24 1400 Wilbert Garcia MD 03/13/242233 documented in this encounter Plan of Treatment Not on file documented as of this encounter Procedures Procedure Name Priority Date/Time Associated Diagnosis Comments ECG 12-LEAD STAT 03/13/2024 2:15 PM EST CBC WITH AUTO DIFFERENTIAL STAT 03/13/2024 2:02 PM EST CBC AND DIFFERENTIAL STAT 03/13/2024 2:02 PM EST THYROID STIMULATING HORMONE STAT Add-on 03/13/2024 2:02 PM EST MAGNESIUM STAT 03/13/2024 2:02 PM EST BASIC METABOLIC PANEL STAT 03/13/2024 2:02 PM EST ECG ANNOTATED 03/13/2024 documented in this encounter Results * ECG 12 lead (03/13/2024 2:15 PM EST) Ventricular Rate ECG 121 BPM GEMUSE Atrial Rate 121 BPM GEMUSE P-R Interval 142 ms GEMUSE QRS Duration 80 ms GEMUSE Q-T Interval 320 ms GEMUSE QTc 454 ms GEMUSE P Wave [place] 47 degrees GEMUSE R [place] 28 degrees GEMUSE T [place] 13 degrees GEMUSE ECG Interpretation Sinus tachycardia Otherwise normal ECG No previous ECGs available Confirmed by MD Sreedhar, [place] ([id number]) on 03/14/2024 9:26:55 AM GEMUSE 03/13/2024 2:15 PM EST 03/14/2024 9:26 AM EST us Wilbert Garcia MD ECG ORDERABLES Final Resul t GEMUSE * (ABNORMAL) Thyroid stimulating hormone (TSH) (03/13/2024 2:02 PM EST) TSH 0.33(L) 0.40 - 4.00 mcIU/mL LAB CHEMISTRY METHOD 03/13/2024 3:35 PM EST [facility] Blood Venous blood specimen / Unknown Venipuncture / Unknown 03/13/2024 2:02 PM EST 03/13/2024 2:54 PM EST us Wilbert Garcia MD LAB BLOOD ORDERABLES Final Result [facility] [address] [place] [address], * (ABNORMAL) CBC auto differential (03/13/2024 2:02 PM EST) WBC 8.7 4.8 - 10.8 K/mcL LAB HEMETOLOGY METHOD 03/13/2024 3:08 PM [facility] RBC 4.50 3.80 - 4.80 M/mcL LAB HEMETOLOGY METHOD 03/13/2024 3:08 PM [facility] Hemoglobin 13.3 11.5 - 16.0 g/dL LAB HEMETOLOGY METHOD 03/13/2024 3:08 PM [facility] Hematocrit 39.0 35.0 - 47.0 % LAB HEMETOLOGY METHOD 03/13/2024 3:08 PM [facility] MCV 87.4 79.0 - 98.0 FL LAB HEMETOLOGY METHOD 03/13/2024 3:08 PM [facility] MCH 29.8 27.0 - 32.0 pcg LAB HEMETOLOGY METHOD 03/13/2024 3:08 PM [facility] MCHC 34.1 32.0 - 37.0 g/dL LAB HEMETOLOGY METHOD 03/13/2024 3:08 PM [facility] RDW 11.5 11.0 - 15.0 % LAB HEMETOLOGY METHOD 03/13/2024 3:08 PM [facility] Platelets 225 130 - 400 K/mcL LAB HEMETOLOGY METHOD 03/13/2024 3:08 PM [facility] MPV 9.7 7.0 - 11.0 FL LAB HEMETOLOGY METHOD 03/13/2024 3:08 PM [facility] NRBC 0.0 <1.0 % LAB HEMETOLOGY METHOD 03/13/2024 3:08 PM [facility] NRBC Absolute 0.00 <0.10 K/mcL LAB HEMETOLOGY METHOD 03/13/2024 3:08 PM [facility] Neutrophils Relative 89.7 % LAB HEMETOLOGY METHOD 03/13/2024 3:08 PM [facility] Lymphocytes Relative 3.0 % LAB HEMETOLOGY METHOD 03/13/2024 3:08 PM [facility] Monocytes Relative 6.1 % LAB HEMETOLOGY METHOD 03/13/2024 3:08 PM [facility] Eosinophils Relative 0.7 % LAB HEMETOLOGY METHOD 03/13/2024 3:08 PM [facility] Basophils Relative 0.3 % LAB HEMETOLOGY METHOD 03/13/2024 3:08 PM [facility] Immature Granulocytes Relative 0.2 % LAB HEMETOLOGY METHOD 03/13/2024 3:08 PM [facility] Neutrophils Absolute 7.75(H) 1.50 - 7.00 K/mcL LAB HEMETOLOGY METHOD 03/13/2024 3:08 PM [facility] Lymphocytes Absolute 0.26(L) 1.00 - 5.00 K/mcL LAB HEMETOLOGY METHOD 03/13/2024 3:08 PM [facility] Monocytes Absolute 0.53 0.20 - 1.00 K/mcL LAB HEMETOLOGY METHOD 03/13/2024 3:08 PM [facility] Eosinophils Absolute 0.06 0.00 - 0.50 K/mcL LAB HEMETOLOGY METHOD 03/13/2024 3:08 PM EST [facility] Basophils Absolute 0.03 0.00 - 0.20 K/[facility] LAB HEMETOLOGY METHOD 03/13/2024 3:08 PM EST [facility] Immature Granulocytes Absolute 0.02 0.00 - 0.03 K/[facility] LAB HEMETOLOGY METHOD 03/13/2024 3:08 PM EST [facility] Blood Venous blood specimen / Unknown Venipuncture / Unknown 03/13/2024 2:02 PM EST 03/13/2024 2:54 PM EST Wilbert Garcia MD LAB BLOOD ORDERABLES Final Result Performing Organization Address [facility]/ZIP Co de Phone Number [facility] [address] [place] [address], [place] [phone] * Magnesium (03/13/2024 2:02 PM EST) [facility] Magnesium 1.9 1.9 - 2.6 mg/dL LAB CHEMISTRY METHOD 03/13/2024 3:24 PM EST [facility] Blood Venous blood specimen / Unknown Venipuncture / Unknown 03/13/2024 2:02 PM EST 03/13/2024 2:54 PM EST Wilbert Garcia MD LAB BLOOD ORDERABLES Final Result [facility] [address] [place] [address], [place] [phone] * (ABNORMAL) Basic metabolic panel (03/13/2024 2:02 PM EST) [facility] Sodium 137 133 - 145 mmol/L LAB CHEMISTRY METHOD 03/13/2024 3:24 PM EST [facility] Potassium 3.4(L) 3.5 - 5.5 mmol/L LAB CHEMISTRY METHOD 03/13/2024 3:24 PM [facility] Chloride 106 96 - 110 mmol/L LAB CHEMISTRY METHOD 03/13/2024 3:24 PM [facility] CO2 23 21 - 32 mmol/L LAB CHEMISTRY METHOD 03/13/2024 3:24 PM [facility] Anion Gap 8 3 - 11 LAB CHEMISTRY METHOD 03/13/2024 3:24 PM [facility] Glucose 91 70 - 100 mg/dL LAB CHEMISTRY METHOD 03/13/2024 3:24 PM [facility] BUN 11 5 - 25 mg/dL LAB CHEMISTRY METHOD 03/13/2024 3:24 PM [facility] Creatinine 0.58 0.50 - 1.10 mg/dL LAB CHEMISTRY METHOD 03/13/2024 3:24 PM [facility] eGFR 125 >=60 mL/min/1. 73m2 LAB CHEMISTRY METHOD 03/13/2024 3:24 PM [facility] Comment:Calculation based on the??Chronic Kidney Disease Epidemiology Collaboration (CKD-EPI) equation refit??without adjustment for race. BUN/Creatinine Ratio 19.0 LAB CHEMISTRY METHOD 03/13/2024 3:24 PM [facility] Calcium 8.8 8.5 - 10.5 mg/dL LAB CHEMISTRY METHOD 03/13/2024 3:24 PM [facility] Blood Venous blood specimen / Unknown Venipuncture / Unknown 03/13/2024 2:02 PM EST 03/13/2024 2:54 PM EST us Wilbert Garcia MD LAB BLOOD ORDERABLES Final Result [facility] [address] [place] [address], [place] [phone] * ECG-Annotated (03/13/2024) us Provider Onbase MD ECG ORDERABLES Final Result documented in this encounter Visit Diagnoses Diagnosis Influenza A- Primary Influenza with other respiratory manifestations Tachycardia Unspecified tachycardia documented in this encounter Administered Medications Inactive Administered Medications - up to 3 most recent administrations Medication Order MAR Action Action Date Dose Rate Site acetaminophen (TYLENOL) tablet 650 mg 650 mg, oral, Once, On Tue03/13/24 at 1559, For 1 dose Given 03/13/2024 4:00 PM EST 650 mg oseltamivir (TAMIFLU) capsule 75 mg 75 mg, oral, Once, On Tue03/13/24 at 1600, For 1 dose, Indication: Influenza Given 03/13/2024 3:53 PM EST 75 mg sodium chloride 0.9 % bolus 1,000 mL 1,000 mL, intravenous, at 1,000 mL/hr, Administer over 1 Hours, Once, On Tue03/13/24 at 1358, For 1 dose New Bag 03/13/2024 2:03 PM EST 1,000 mL 100 0 mL/hr documented in this encounter Active and Recently Administered Medications Times are shown in EST. Scheduled Medication Order 03/11/2024 03/12/2024 03/13/2024 acetaminophen (TYLENOL) tablet 650 mg (COMPLETED) 650 mg, oral, Once, On Tue03/13/24 at 1559, For 1 dose 1600 (Given - Provid er: Odette Vasquez RN) oseltamivir (TAMIFLU) capsule 75 mg (COMPLETED) 75 mg, oral, Once, On Tue03/13/24 at 1600, For 1 dose, Indication: Influenza 1553 (Given - Provid er: Odette Vasquez RN) sodium chloride 0.9 % bolus 1,000 mL (COMPLETED) 1,000 mL, intravenous, at 1,000 mL/hr, Administer over 1 Hours, Once, On Tue03/13/24 at 1358, For 1 dose 1403 (New Bag - Prov ider: Giovanna Boothe RN)1531 (Stopped - Provider: Odette Vasquez RN) documented in this encounter Care Teams Fleet Service Manager Relationship Specialty Start Date End Date Connie Zamorano MD [address] [place] [address] PCP - General Internal Medicine 03/17/17 documented as of this encounter
[2024-04-05 13:55] LABS: TSH reflex Free T4 0.95 uIU/mL (0.32-4.0)
[2024-04-06 18:13] LABS: Triiodothyronine T3 Free 3.6 pg/mL (2.3-4.2)
== END 2024-04-05 10:16 | disposition home or self-care (01) ==
LOC: HO.HMGCLDS 10:15
PROVIDERS: PCP Internal Medicine; Visit Provider Internal Medicine
DX: R00.0 Tachycardia, unspecified (principal)
CPT/HCPCS: 36415; 84443; 84481

== ENCOUNTER 2024-09-13 13:07 | Outpatient (AMB) | payer BC, SELFPAY ==
[2024-09-13 13:11] VITALS: BP 108/76; PULSE 83; RESP 18; TEMP 37.3; O2SAT 98; BMI 34.5
--- NOTE | 2024-09-13 13:11 | A.OFFPC_ITS ---
Vital Signs 09/13/24 13:11 Height 5 ft 4 in Weight 201 lb BMI 34.5 BP 108/76 Blood Pressure Location Lt brachial Position Sitting Respiration 18 Pulse 83 Pulse Source Pulse Oximeter Temp 99.2 F Temp Source Oral Pulse Oximetry (%) 98 Oxygen Delivery Method Room Air Intake Visit Reasons: PE Intake Note: Pt is here today for PE. Allergies oranges Allergy (Uncoded 09/13/24 13:16) rash, trouble breathing Medication List - Last Reconciled 09/13/24 by Vesta Dacosta MD No Known Home Meds Tobacco use date assessed: 09/13/24 Dental Screening Dental Screen Date: 09/13/24 Did you have a dental visit in the last 12 months?: Yes Did you have a dental problem in the last 6 months where you did not have access to dental care?: No Was dental information given to patient?: Patient has dentist HPI PE HPI Details Patient presents for physical. She complains of chronic intermittent anal itching and occasionally rectal discomfort pressure Patient noticed external hemorrhoids on and off. She denies abdominal pain, blood mixed with the stool hematochezia or melena. She reports intermittent diarrhea PFSH Medical History (Updated 09/13/24 @ 14:23 by Vesta Dacosta MD) Adult general medical examination Hyperglycemia Gestational diabetes Surgical History (Updated 09/13/24 @ 13:18 by AIDE [place]) No pertinent past surgical history Family History Father No problems noted. Mother No problems noted. Social History (Updated 09/13/24 @ 14:21 by Vesta Dacosta MD) Household Members Other:: 2 children( 2 and 5 yr) 2024 Housing: House Patient Tobacco Use Status: Never used Tobacco e-Cigarette/Vaping Use: Never Used service: No Current occupational status: employed Cognitive needs: No Hearing needs: No Vision needs: Yes Questionnaire PHQ-9 Over the last 2 weeks, how often have you been bothered by any of the following problems? 1. Little interest or pleasure in doing things: not at all 2. Feeling down, depressed, or hopeless: not at all 3. Trouble falling or staying asleep, or sleeping too much: not at all 4. Feeling tired or having little energy: not at all 5. Poor appetite or overeating: not at all 6. Feeling bad about yourself - or that you are a failure or have let yourself or your family down: not at all 7. Trouble concentrating on things, such as reading the newspaper or watching television: not at all 8. Moving or speaking so slowly that other people could have noticed. Or the opposite - being so fidgety or restless that you have been moving around a lot more than usual: not at all 9. Thoughts that you would be better off or of hurting yourself in some way: not at all Total score: 0 Depression Screening Interpretation: Negative Depression Screening Done: Yes 50395 - PHQ-9 Billing: Yes Source: Developed by Drs. Tulio Perez, Ling Adkins, Rosales Cesar and colleagues, with an educational george from [employer]. Thrive Questionnaire Date Thrive assessed: 09/13/24 I am a: Patient What is your living situation today?: I have a steady place to live Within the past 12 months, did the food you bought not last and you didn't have the money to get more?: Never true Within the past 12 months, did you worry whether your food would run out before you got money to buy more?: Never true Do you have trouble paying for medicines?: No Do you have trouble getting transportation to medical appointments?: No Do you have trouble paying your heating and electricity bill?: No Do you have trouble taking care of your child, family member or friend?: No Do you have trouble with day-to-day activities such as bathing, preparing meals, shopping, managing finances, etc.?: No Are you currently unemployed and looking for a job?: No Are you interested in more education?: No Please select the resources that you would like help with: None Currently or been in a relationship where the following occur: No concerns reported THRIVE Score: 0 AUDIT C Alcohol Use Questionnaire (AUDIT-C) 1. How often do you have a drink containing alcohol?: Never 3. How often do you have six or more drinks on one occasion?: Never Total Score: 0 ROBERT-7 AMB Questionnaire ROBERT-7 Date ROBERT - 7 assessed: 09/13/24 Feeling nervous, anxious, or on edge: 0 = Not at all Not being able to stop or control worryin = Not at all Worrying too much about different things: 0 = Not at all Trouble relaxin = Not at all Being so restless that it is hard to sit still: 0 = Not at all Becoming easily annoyed or irritable: 0 = Not at all Feeling afraid as if something awful might happen: 0 = Not at all Total ROBERT-7 score (0-4 normal; 5-9 mild; 10-14 moderate; 15-21 severe): 0 Source: Developed by Drs. Tulio Perez, Ling Adkins, Rosales Cesar and colleagues, with an educational george from [employer]. ROBERT-7 Assessment Billing ROBERT-7 Assessment Tool: ROBERT-7 Assessment 40138 Review of Systems Const All systems reviewed & are unremarkable except as noted in HPI and below Eyes Reports no additional complaints ENT Reports no additional complaints Card Reports no additional complaints Resp Reports no additional complaints GI Reports no additional complaints Reports no additional complaints Physical exam (Primary Care) Vital Signs: Last Vital Signs Temp 99.2 F 09/13/24 13:11 Pulse 83 09/13/24 13:11 Resp 18 09/13/24 13:11 BP 108/76 09/13/24 13:11 Pulse Ox 98 09/13/24 13:11 Oxygen Delivery Method Room Air 09/13/24 13:11 BMI result Body Mass Index 34.5 Tobacco/Smoking Status: Tobacco use Status Tobacco use date assessed 09/13/24 09/13/24 13:19 Patient Tobacco Use Status Never used Tobacco 09/13/24 13:19 e-Cigarette/Vaping Use Never Used 09/13/24 13:19 PHQ-9: PHQ-9 Score PHQ-9: Total score 0 09/13/24 13:19 Depression Screening Interpretation: Negative Thrive Assessment: Date of Thrive Assessment Date Thrive assessed 09/13/24 09/13/24 13:19 Currently or been in a relationship where the following occur: No concerns reported Const General: no acute distress HENMT Head: Yes normal to inspection Ears: TM's normal bilaterally Face and sinus: Yes normal facial exam Throat: Yes posterior oropharynx normal Eyes General: appearance normal, both eyes and all related structures Neck Neck: Yes no lymphadenopathy and Yes supple Resp Effort & Inspection: normal respiratory effort Auscultation: clear to auscultation bilaterally Cardio Rhythm: regular rhythm Heart sounds: S1 normal heart sound present and S2 normal heart sound present GI Inspection: Yes normal to inspection Palpation (GI): Soft to palpation Percussion: Yes normal to percussion Auscultation: normal bowel sounds Rectal Exam - Female: visual inspection normal, normal sphincter tone, No External hemorrhoid(s) present and No Anal fissure(s) present Coding Level of Care Code Est Pt Prev Care 18-39y(68480) Diagnoses Adult general medical examination Z00.00 Hyperglycemia R73.9 Anal pruritus L29.0 Hemorrhoids K64.9 Additional Codes ROBERT-7 Assessment Billing - ROBERT-7 Assessment Tool: ROBERT-7 Assessment 84180 ([id number]) PHQ-9 - 09986 - PHQ-9 Billing: Yes ([id number]) Assessment & Plan Assessment & Plan (1) Adult general medical examination: Code(s): Z00.00 - Encounter for general adult medical examination without abnormal findings Category: Medical Plan: Well-balanced diet regular physical activity weight loss discussed with the patient. She will return for fasting blood work (2) Hyperglycemia: Code(s): R73.9 - Hyperglycemia, unspecified Category: Medical Plan: ADA diet increase exercise weight loss discussed with the patient check A1c (3) Anal pruritus: Code(s): L29.0 - Pruritus ani Category: Medical Plan: skin care discussed with the patient (4) Hemorrhoids: Code(s): K64.9 - Unspecified hemorrhoids Category: Medical Plan: try hydrocortisone cream with applicator as needed, patient was advised to prevent constipation , increase fiber intake and eat well-balanced diet Orders: Orders Lipid Panel Today Z00.00 - Encounter for general adult medical examination without abnormal findings Hemoglobin A1c Today R73.9 - Hyperglycemia, unspecified Vitamin D 25-OH Total Today R73.9 - Hyperglycemia, unspecified Comprehensive Met. Panel Today R73.9 - Hyperglycemia, unspecified Complete Blood Count Auto Diff Today Z00.00 - Encounter for general adult medical examination without abnormal findings TSH reflex Free T4 Today Z00.00 - Encounter for general adult medical examination without abnormal findings Medications: New hydrocortisone 2.5% 1 appl HI BID PRN 30 grams 3RF hemorrhoids
--- OUTSIDE RECORDS SUMMARY | 2024-09-13 13:20 | XMS_ITS | Clinical Summary ---
Author Organization [facility] [place] [address] Phone Care Team Providers Care Supervisor Fertilizer Processing Name Role Phone Connie Zamorano MD Primary Care Provider [phone] Allergies No known active allergies Surgical History Surgery Date Site/Laterality Comments OTHER [...] 130 03/13/2024 2:04 PM EST Temperature 37.2 C (99 F) 03/13/2024 2:04 PM EST Respiratory Rate 16 [...] Vaccine (1 - 2023-2 5 season) 2023 Depression Screening 02/15/2024 HIV Screening 03/13/2024 Hepatitis C Screening 03/13/2024 Social Influencers of Health Screening 03/13/2024 Influenza Vaccine (#1) 2024 DTaP,Tdap,and Td Vaccines (2 - Td or [...] age to complete this topic Meningococcal B Vaccine Aged Out No l onger eligible based on patient's age to complete this topic Pneumococcal Vaccine: Pediat rics (0 to 5 Years) and At-Risk Patients (6 to 49 Years) Aged Out No longer eligi ble based on patient's age to complete this topic RSV Immunization Patients Un bernardo 20 months Aged Out No longer eligible b ased on patient's age to complete this topic Varicella Vaccines Aged Out No longer eligible based on patient's age to complete this topic Procedures Procedure Name Priority Date/Time Associated Diagnosis Comments PAP SMEAR Routine 03/28/2018 from Last 3 Months or Most Recently Relevant to Health Maintenance Results * Pap smear (03/28/2018) 03/28/2018 Narrative HISTORICAL TESTING LAB RESULTING AGENCY - 04/04/2018 3:53 PM EST [id number] THINPREP PAP, IMAGED: ATYPICAL SQUAMOUS CELLS OF UNDETERMINED SIGNIFICANCE (ASCUS) . LELAND IS PRESENT. KENYA SMITH , CT(ASCP) (CASE SCREENED 03 30 2018) JOVANY PINTO M.D. , PATHOLOGIST (CASE ELECTRONICALLY SIGNED 03 31 2018) RESULT OF APTIMA HIGH RISK HPV ASSAY: HIGH RISK HPV: NEGATIVE (SEROTYPES 16,18,31,33,35,39,45,51,52,56,58,59,66,68) COMPLETED ON 2018-04-04 ADEQUACY: SATISFACTORY ENDOCERVICAL/TRANSFORMATION ZONE COMPONENT PRESENT. SOURCE: THINPREP PAP HPV IF ASCUS, CERVICAL, IMAGED CLINICAL INFORMATION: HPV IF DIAGNOSIS OF ASCUS. Z12.4, Z01.419,, LMP 03/08/18, HORMONES Paddy Hernandez CN LAB CYTOLOGY ORDERABLES Final Result HISTORICAL TESTING LAB RESULTING AGENCY from Last 3 Months or Most Recently Relevant to Health Maintenance Insurance [facility] Care Teams Supervisor Fertilizer Processing Relationship Specialty Start Date End Date Connie Zamorano MD [address] [place] [address] [place] [address] PCP - General Internal Medicine 03/17/17
== END 2024-09-13 14:24 | disposition home or self-care (01) ==
LOC: HO.HMCC 13:08
PROVIDERS: PCP Internal Medicine; Visit Provider Internal Medicine
DX: Z00.00 Encounter for general adult medical examination without abnormal findings (principal); R73.9 Hyperglycemia, unspecified; L29.0 Pruritus ani; K64.9 Unspecified hemorrhoids

== ENCOUNTER 2024-09-13 13:07 | Outpatient (REF) | payer BC, SELFPAY ==
[2024-09-13 15:50] LABS: MANUAL DIFF FLAG NO
[2024-09-13 15:53] LABS: Hematocrit 39.4 % (37.0-47.0); Hemoglobin 13.1 g/dl (12.0-16.0); Imm Gran Abs Auto 0.02 X10*3/uL (0.00-0.03); Imm Gran Pct Auto 0.2 % (0.0-0.4); Lymphocytes Absolute Auto 1.8 X10*3/uL (1.2-4.9); Mean Corpuscular HGB Conc 33.2 g/dl (31.0-35.0); Mean Corpuscular Hemoglobin 28.5 pg (27.0-33.0); Mean Corpuscular Volume 85.7 fL (80.0-98.0); NRBC Abs Auto 0.000 X10*3/uL (0.0-0.012); NRBC Pct Auto 0.0 /100WBC (0.0-0.2); Platelet Count 282 X10*3/uL (160-400); Red Blood Count 4.60 X10*6/uL (4.20-5.50); White Blood Count 8.3 X10*3/uL (4.8-10.8)
[2024-09-13 16:01] LABS: Hemoglobin A1C 125.6224 umol/L; Total Hemoglobin (HGBA1C) 3519.6575 umol/L
[2024-09-13 16:17] LABS: Alanine Aminotransferase 24 U/L (0-31); Albumin Level 4.7 g/dL (3.5-5.0); Alkaline Phosphatase 86 U/L (39-117); Anion Gap 11 (12-20); Aspartate Amino Transferase 25 U/L (5-31); Blood Urea Nitrogen 11 mg/dL (9-16); Calcium 8.9 mg/dL (8.4-10.2); Carbon Dioxide 26 mmol/L (22-29); Chloride 106 mmol/L (96-108); Cholesterol 198 mg/dL (<200); Estimated Glomerular Filt Rate > 60; HDL Cholesterol 42 mg/dL (>40); Potassium 3.9 mmol/L (3.3-5.1); Sodium 139 mmol/L (135-145); Total Protein 7.4 g/dL (6.5-8.0); Triglycerides 165 mg/dL (<150)
== END 2024-09-13 13:08 | disposition home or self-care (01) ==
LOC: HO.HMGCLDS 13:07
PROVIDERS: PCP Internal Medicine; Visit Provider Internal Medicine
DX: Z00.00 Encounter for general adult medical examination without abnormal findings (principal); R73.9 Hyperglycemia, unspecified; L29.0 Pruritus ani; K64.9 Unspecified hemorrhoids; Z13.31 Encounter for screening for depression; Z13.39 Encounter for screening examination for other mental health and behavioral disorders
CPT/HCPCS: 36415; 80053; 80061; 82306; 83036; 84443; 85025; 96127